=== PATIENT | male | born 1975 | race American Indian/Alaskan Native ===

== ENCOUNTER 2018-01-20 16:13 | Emergency (ER) | payer SELFPAY ==
[2018-01-20 17:33] LABS: Basophils # (Auto) 0.1 K/mm3 (0.0-0.1); Basophils % (Auto) 0.5 % (0.0-1.8); Eosinophils # (Auto) 0.1 K/mm3 (0.0-0.4); Eosinophils % (Auto) 0.5 % (0.0-4.3); Hematocrit 50.7 % (35.5-45.6); Hemoglobin 17.1 gm/dl (11.8-15.2); Lymphocytes # (Auto) 2.5 K/mm3 (1.2-5.4); Lymphocytes % (Auto) 21.5 % (13.4-35.0); Mean Corpuscular HGB Conc 34 % (32-34); Mean Corpuscular Hemoglobin 31 pg (28-32); Mean Corpuscular Volume 93 fl (84-94); Monocytes # (Auto) 0.9 K/mm3 (0.0-0.8); Monocytes % (Auto) 7.5 % (0.0-7.3); Platelet Count 262 K/mm3 (140-440); Red Blood Count 5.45 M/mm3 (3.65-5.03); Red Cell Distribution Width 14.7 % (13.2-15.2)
[2018-01-20 17:41] LABS: Alanine Aminotransferase 20 units/L (7-56); Albumin 4.5 g/dL (3.9-5); BUN/Creatinine Ratio 11; Blood Urea Nitrogen 16 mg/dL (9-20); Calcium 9.7 mg/dL (8.4-10.2); Hemolysis Index 13
[2018-01-20] MEDS ORDERED: NACL 0.9% 500 ML 500 ML IV ONE (18:15)
[2018-01-20] MEDS ORDERED: ZOFRAN IV ONE (18:15)
--- NOTE | 2018-01-20 18:20 | Emergency Department Report ---
<ELENIFIELDPAULOHaritha Wilcox - Last Filed: 01/20/18 20:34> ED N/V/D HPI - General Chief complaint: Nausea/Vomiting/Diarrhea Stated complaint: FOOD POISONING Time Seen by Provider: 01/20/18 18:11 - Related Data Previous Rx's Medication Instructions Recorded Last Taken Type Aspirin [Aspirin BABY CHEW TAB] 81 mg PO QDAY #30 tab.chew 04/16/13 Unknown Rx Carvedilol [Coreg] 12.5 mg PO BID #60 tablet 04/16/13 Unknown Rx Isosorbide Mononitrate [Imdur] 60 mg PO QDAY #30 tab.er.24h 04/16/13 Unknown Rx Lisinopril [Zestril TAB] 20 mg PO QDAY #30 tablet 04/16/13 Unknown Rx Nitroglycerin [Nitrostat] 0.4 mg SL Q5M #25 tab 04/16/13 Unknown Rx Rosuvastatin (Nf) [Crestor] 20 mg PO QHS #30 tablet 04/16/13 Unknown Rx Ticagrelor [Brilinta] 90 mg PO BID #60 tablet 04/16/13 Unknown Rx Dicyclomine [Bentyl] 20 mg PO QID PRN #20 tablet 01/20/18 Unknown Rx Ondansetron [Zofran Odt] 4 mg PO Q8HR PRN #20 tab.rapdis 01/20/18 Unknown Rx Allergies Allergy/AdvReac Type Severity Reaction Status Date / Time No Known Allergies Allergy Unverified 04/14/13 01:41 ED Review of Systems ROS: Stated complaint: FOOD POISONING Other details as noted in HPI ED Past Medical Hx - Medications Home Medications: Home Medications Medication Instructions Recorded Confirmed Last Taken Type Aspirin [Aspirin BABY CHEW TAB] 81 mg PO QDAY #30 tab.chew 04/16/13 Unknown Rx Carvedilol [Coreg] 12.5 mg PO BID #60 tablet 04/16/13 Unknown Rx Isosorbide Mononitrate [Imdur] 60 mg PO QDAY #30 tab.er.24h 04/16/13 Unknown Rx Lisinopril [Zestril TAB] 20 mg PO QDAY #30 tablet 04/16/13 Unknown Rx Nitroglycerin [Nitrostat] 0.4 mg SL Q5M #25 tab 04/16/13 Unknown Rx Rosuvastatin (Nf) [Crestor] 20 mg PO QHS #30 tablet 04/16/13 Unknown Rx Ticagrelor [Brilinta] 90 mg PO BID #60 tablet 04/16/13 Unknown Rx Dicyclomine [Bentyl] 20 mg PO QID PRN #20 tablet 01/20/18 Unknown Rx Ondansetron [Zofran Odt] 4 mg PO Q8HR PRN #20 tab.rapdis 01/20/18 Unknown Rx ED Course Vital Signs 01/20/18 01/20/18 16:43 20:46 Temperature 98.1 F 98.5 F Pulse Rate 83 68 Respiratory 18 Rate Blood Pressure 154/105 Blood Pressure 122/72 [Left] O2 Sat by Pulse 99 Oximetry ED Medical Decision Making - Lab Data Result diagrams: 01/20/18 17:13 01/20/18 17:13 Critical care attestation.: If time is entered above; I have spent that time in minutes in the direct care of this critically ill patient, excluding procedure time. ED Disposition Clinical Impression: Gastroenteritis Disposition: DC-01 TO HOME OR SELFCARE Is pt being admited?: No Does the pt Need Aspirin: No Condition: Stable Instructions: Gastroenteritis (ED) Additional Instructions: Please increase her fluid intake and advance her diet as tolerated. If her symptoms persist or gets worse please follow up with her primary care provider Prescriptions: Dicyclomine [Bentyl] 20 mg PO QID PRN #20 tablet PRN Reason: abdominal pain Ondansetron [Zofran Odt] 4 mg PO Q8HR PRN #20 tab.rapdis PRN Reason: Vomiting Referrals: [facility] [Provider Group] - 3-5 Days <IKE SCOTT - Last Filed: 01/21/18 11:39> ED N/V/D HPI - General Source: patient Mode of arrival: Ambulatory Limitations: No Limitations - History of Present Illness Initial comments: 42-year-old male presents to the ED with complaints of nausea, vomiting, diarrhea. Patient reports symptoms began 2 days ago after eating ribs. Patient reports only intermittent diffuse abdominal cramping. Denies fever, reports chills. Denies chest pain. Patient states today he has been able to start drinking a small amount of fluids. MD complaint: nausea, vomiting, diarrhea -: days(s) (2) Description of Vomiting: food contents, watery Description of Diarrhea: water Associated Abdominal Pain: Yes (cramping) Location: diffuse Radiation: none Severity: mild Quality: cramping Consistency: intermittent Improves with: none Worsens with: none Context: possible food poisoning Associated Symptoms: fever/chills, nausea/vomiting. denies: chest pain ED Review of Systems Comment: All other systems reviewed and negative Constitutional: chills. denies: fever Cardiovascular: denies: chest pain Gastrointestinal: abdominal pain, nausea, vomiting, diarrhea ED Past Medical Hx - Past Medical History Hx Hypertension: Yes Hx Heart Attack/AMI: Yes (x3) Hx Congestive Heart Failure: No Hx Diabetes: No Hx Asthma: No Hx COPD: No - Surgical History Hx Coronary Stent: Yes (x2) Additional Surgical History: heart stent - Social History Smoking Status: Current Every Day Smoker Substance Use Type: None ED Physical Exam - General Limitations: No Limitations General appearance: alert, in no apparent distress - Head Head exam: Present: atraumatic, normocephalic - Eye Eye exam: Present: normal appearance - ENT ENT exam: Present: mucous membranes moist - Neck Neck exam: Present: normal inspection - Respiratory Respiratory exam: Present: normal lung sounds bilaterally. Absent: respiratory distress - Cardiovascular Cardiovascular Exam: Present: regular rate, normal rhythm - GI/Abdominal GI/Abdominal exam: Present: soft. Absent: distended, tenderness - Extremities Exam Extremities exam: Present: normal inspection - Neurological Exam Neurological exam: Present: alert, oriented X3 - Psychiatric Psychiatric exam: Present: normal affect, normal mood - Skin Skin exam: Present: warm, dry, intact, normal color ED Medical Decision Making - Lab Data Result diagrams: 01/20/18 17:13 01/20/18 17:13 - Medical Decision Making 42-year-old male with gastroenteritis. Labs unremarkable. IV fluids given. Patient tolerating by mouth. Will discharge with prescriptions for antiemetics and Bentyl. - Differential Diagnosis pancreatitis, gastroenteritis, hypokalemia, dehydration ED Disposition Is pt being admited?: No
[2018-01-20 19:40] LABS: Bilirubin,Urine NEG (Negative); Blood,Urine MOD (Negative); Color,Urine Amber (Yellow); Hyaline Casts,Urine 2 /LPF; Mucus,Urine 3+ /HPF
[2018-01-20 20:47] VITALS: BP 122/72
== END 2018-01-20 20:46 | disposition home or self-care (01) ==
LOC: ED 16:13
DX: K52.9 Noninfective gastroenteritis and colitis, unspecified (principal); I10 Essential (primary) hypertension; I25.2 Old myocardial infarction; F17.200 Nicotine dependence, unspecified, uncomplicated; Z95.818 Presence of other cardiac implants and grafts
CPT/HCPCS: 36415; 80053; 81001; 83690; 85025; 96361; 96374; 99283; J2405; J7040

== ENCOUNTER 2018-01-22 18:54 | Inpatient (IN) | payer SELFPAY ==
[2018-01-22 20:07] LABS: INR 1.06 (0.87-1.13)
[2018-01-22 20:08] LABS: Partial Thromboplastin Time 28.9 Sec. (24.2-36.6)
[2018-01-22 20:15] LABS: BUN/Creatinine Ratio 11; Blood Urea Nitrogen 12 mg/dL (9-20); Calcium 9.3 mg/dL (8.4-10.2); Hematocrit 47.3 % (35.5-45.6); Hemoglobin 15.8 gm/dl (11.8-15.2); Hemolysis Index 7; Mean Corpuscular Hemoglobin 31 pg (28-32); Mean Corpuscular Volume 93 fl (84-94); Red Blood Count 5.07 M/mm3 (3.65-5.03)
[2018-01-22 20:16] LABS: Basophils % (Auto) 0.6 % (0.0-1.8); Eosinophils % (Auto) 0.5 % (0.0-4.3); Lymphocytes # (Auto) 1.8 K/mm3 (1.2-5.4); Lymphocytes % (Auto) 26.4 % (13.4-35.0); Mean Corpuscular HGB Conc 34 % (32-34); Monocytes # (Auto) 0.6 K/mm3 (0.0-0.8); Monocytes % (Auto) 8.2 % (0.0-7.3); Platelet Count 230 K/mm3 (140-440); Red Cell Distribution Width 14.4 % (13.2-15.2)
--- NOTE | 2018-01-22 22:08 | Cat Scan Report ---
FINAL REPORT EXAM: CT HEAD/BRAIN WO CON HISTORY: neuro deficits < 6hrs or sx present upon awakening TECHNIQUE: 2.5 millimeter axial images from the skullbase to the vertex. Comparison: None FINDINGS: There are 2 well-defined areas of decreased density in the right cerebellum with a mild degree of mass effect on the adjacent brain. This most likely represents areas of acute infarct in this patient with new onset neurologic deficit. There is no evidence of intracranial hemorrhage. There are infarcts in the right basal ganglia and right cerebellum that appear to be chronic. Ventricular size is concordant with the degree of atrophy. The visualized portions of the orbits the, paranasal and mastoid sinuses are unremarkable. The bony structures are unremarkable in appearance. IMPRESSION: 1. Evidence of acute infarcts in the right cerebellum. 2. Infarcts right basal ganglia and right cerebellum that appear to be chronic. If there is no clinical contraindication, MRI brain may be helpful for further evaluation.
--- NOTE | 2018-01-22 22:52 | Emergency Department Report ---
ED Neuro Deficit HPI - General Chief Complaint: Neuro Symptoms/Deficit Stated Complaint: NEURAL SYMPTOMS Time Seen by Provider: 01/22/18 22:26 Source: patient Mode of arrival: Ambulatory Limitations: No Limitations - History of Present Illness Initial Comments: Patient is 42 years old male with history of atrial fibrillation and previous stroke 3 years ago, coronary artery disease status post 3 stents before. Patient presented to the ER complaining of right upper and lower extremity weakness. Patient stated that he is having difficulty writing and grabbing things. He also stated that he been having trouble with his balance. Patient stated that his symptoms started 2 days ago but he did not seek any medical treatment. Patient denied any chest pain, nausea or vomiting. He also complaining of slurred speech. -: days(s) Location: speech, right face, right leg Presenting Symptoms: Present: Weak/Paralyzed One Side, Facial Droop/Numbness Context: sudden onset - Related Data Home Medications: Previous Rx's Medication Instructions Recorded Last Taken Type Aspirin [Aspirin BABY CHEW TAB] 81 mg PO QDAY #30 tab.chew 04/16/13 Unknown Rx Carvedilol [Coreg] 12.5 mg PO BID #60 tablet 04/16/13 Unknown Rx Isosorbide Mononitrate [Imdur] 60 mg PO QDAY #30 tab.er.24h 04/16/13 Unknown Rx Lisinopril [Zestril TAB] 20 mg PO QDAY #30 tablet 04/16/13 Unknown Rx Nitroglycerin [Nitrostat] 0.4 mg SL Q5M #25 tab 04/16/13 Unknown Rx Rosuvastatin (Nf) [Crestor] 20 mg PO QHS #30 tablet 04/16/13 Unknown Rx Ticagrelor [Brilinta] 90 mg PO BID #60 tablet 04/16/13 Unknown Rx Dicyclomine [Bentyl] 20 mg PO QID PRN #20 tablet 01/20/18 Unknown Rx Ondansetron [Zofran Odt] 4 mg PO Q8HR PRN #20 tab.rapdis 01/20/18 Unknown Rx Allergies/Adverse Reactions: Allergies Allergy/AdvReac Type Severity Reaction Status Date / Time No Known Allergies Allergy Unverified 04/14/13 01:41 ED Review of Systems ROS: Stated complaint: NEURAL SYMPTOMS Other details as noted in HPI Comment: All other systems reviewed and negative Constitutional: denies: chills, fever Respiratory: denies: cough, orthopnea, shortness of breath, SOB with exertion, wheezing Cardiovascular: denies: chest pain, palpitations Gastrointestinal: denies: abdominal pain, nausea, vomiting, diarrhea, constipation, hematemesis, hematochezia Genitourinary: denies: urgency, dysuria, frequency, hematuria, discharge Neurological: weakness, numbness, paresthesias, abnormal gait, vertigo. denies : headache, confusion ED Past Medical Hx - Past Medical History Hx Hypertension: Yes Hx Heart Attack/AMI: Yes (x3) Hx Congestive Heart Failure: No Hx Diabetes: No Hx Asthma: No Hx COPD: No Additional medical history: ELEVATED CHOLESTEROL - Surgical History Hx Coronary Stent: Yes (x2) Additional Surgical History: heart stent - Social History Smoking Status: Current Every Day Smoker Substance Use Type: None, Marijuana - Medications Home Medications: Home Medications Medication Instructions Recorded Confirmed Last Taken Type Aspirin [Aspirin BABY CHEW TAB] 81 mg PO QDAY #30 tab.chew 04/16/13 Unknown Rx Carvedilol [Coreg] 12.5 mg PO BID #60 tablet 04/16/13 Unknown Rx Isosorbide Mononitrate [Imdur] 60 mg PO QDAY #30 tab.er.24h 04/16/13 Unknown Rx Lisinopril [Zestril TAB] 20 mg PO QDAY #30 tablet 04/16/13 Unknown Rx Nitroglycerin [Nitrostat] 0.4 mg SL Q5M #25 tab 04/16/13 Unknown Rx Rosuvastatin (Nf) [Crestor] 20 mg PO QHS #30 tablet 04/16/13 Unknown Rx Ticagrelor [Brilinta] 90 mg PO BID #60 tablet 04/16/13 Unknown Rx Dicyclomine [Bentyl] 20 mg PO QID PRN #20 tablet 01/20/18 Unknown Rx Ondansetron [Zofran Odt] 4 mg PO Q8HR PRN #20 tab.rapdis 01/20/18 Unknown Rx ED Neuro Physical Exam - General Limitations: No Limitations General appearance: alert, in no apparent distress Suspected Stroke: Yes - Head Head exam: Present: atraumatic, normocephalic, normal inspection - Eye Eye exam: Present: normal appearance, PERRL - ENT ENT exam: Present: normal exam, normal orophraynx, mucous membranes moist - Neck Neck exam: Present: normal inspection, full ROM. Absent: tenderness, meningismus, lymphadenopathy, thyromegaly - Respiratory Respiratory exam: Present: normal lung sounds bilaterally. Absent: respiratory distress, wheezes, rales, rhonchi, chest wall tenderness, accessory muscle use, decreased breath sounds, prolonged expiratory - Cardiovascular Cardiovascular Exam: Present: regular rate, normal rhythm, normal heart sounds - GI/Abdominal GI/Abdominal exam: Present: soft, normal bowel sounds. Absent: distended, tenderness, guarding, rebound, rigid, organomegaly, mass, bruit, pulsatile mass , hernia - Extremities Exam Extremities exam: Present: normal inspection, full ROM, normal capillary refill. Absent: tenderness, pedal edema, joint swelling, calf tenderness - Back Exam Back exam: Present: normal inspection, full ROM. Absent: CVA tenderness (R), CVA tenderness (L), muscle spasm, paraspinal tenderness, vertebral tenderness - Neurological Exam Neurological exam: Present: alert, oriented X3, CN II-XII intact, normal gait, reflexes normal - NIHSS Assessment Interval: 24 hours post onset of symptoms +-20 minutes 1a. Level of Consciousness: alert/keenly responsive 1b. LOC Questions: answers both correctly 1c. LOC Commands: performs tasks correctly 2. Best Gaze: normal 3. Visual: no visual loss 4. Facial Palsy: minor paralysis 5b. Motor Arm Right: no drift 5a. Motor Arm Left: no drift 6a. Motor Leg Left: no drift 6b. Motor Leg Right: no drift 7. Limb Ataxia: absent 8. Sensory: mild/moderate sensory loss 9. Best Language: mild/moderate aphasia 10. Dysarthria: mild/moderate dysarthria 11. Extinction/Inattention: no abnormality Total Score: 4 Stroke Severity: Minor Stroke - Skin Skin exam: Present: warm, intact, normal color ED Course Vital Signs 01/22/18 19:16 Temperature 98.7 F Pulse Rate 94 H Respiratory 20 Rate Blood Pressure 138/94 O2 Sat by Pulse 98 Oximetry - Lab Data Result diagrams: 01/22/18 19:34 01/22/18 19:34 Lab Results 01/22/18 01/22/18 01/22/18 Range/Units 19:34 19:34 19:34 WBC 6.9 (4.5-11.0) K/mm3 RBC 5.07 H (3.65-5.03) M/mm3 Hgb 15.8 H (11.8-15.2) gm/dl Hct 47.3 H (35.5-45.6) % MCV 93 (84-94) fl MCH 31 (28-32) pg MCHC 34 (32-34) % RDW 14.4 (13.2-15.2) % Plt Count 230 (140-440) K/mm3 Lymph % (Auto) 26.4 (13.4-35.0) % [place] % (Auto) 8.2 H (0.0-7.3) % Eos % (Auto) 0.5 (0.0-4.3) % Baso % (Auto) 0.6 (0.0-1.8) % Lymph # 1.8 (1.2-5.4) K/mm3 [place] # 0.6 (0.0-0.8) K/mm3 Eos # 0.0 (0.0-0.4) K/mm3 Baso # 0.0 (0.0-0.1) K/mm3 Seg Neutrophils % 64.3 (40.0-70.0) % Seg Neutrophils # 4.4 (1.8-7.7) K/mm3 PT 14.4 (12.2-14.9) Sec. INR 1.06 (0.87-1.13) APTT 28.9 (24.2-36.6) Sec. Thrombin Time (15.1-19.6) Sec. Sodium 140 (137-145) mmol/L Potassium 3.9 (3.6-5.0) mmol/L Chloride 102.3 (98-107) mmol/L Carbon Dioxide 25 (22-30) mmol/L Anion Gap 17 mmol/L BUN 12 (9-20) mg/dL Creatinine 1.1 (0.8-1.5) mg/dL Estimated GFR > 60 ml/min BUN/Creatinine Ratio 11 % Glucose 99 (75-100) mg/dL Calcium 9.3 (8.4-10.2) mg/dL Troponin T < 0.010 (0.00-0.029) ng/mL 01/22/18 Range/Units 19:34 WBC (4.5-11.0) K/mm3 RBC (3.65-5.03) M/mm3 Hgb (11.8-15.2) gm/dl Hct (35.5-45.6) % MCV (84-94) fl MCH (28-32) pg MCHC (32-34) % RDW (13.2-15.2) % Plt Count (140-440) K/mm3 Lymph % (Auto) (13.4-35.0) % [place] % (Auto) (0.0-7.3) % Eos % (Auto) (0.0-4.3) % Baso % (Auto) (0.0-1.8) % Lymph # (1.2-5.4) K/mm3 [place] # (0.0-0.8) K/mm3 Eos # (0.0-0.4) K/mm3 Baso # (0.0-0.1) K/mm3 Seg Neutrophils % (40.0-70.0) % Seg Neutrophils # (1.8-7.7) K/mm3 PT (12.2-14.9) Sec. INR (0.87-1.13) APTT (24.2-36.6) Sec. Thrombin Time 16.9 (15.1-19.6) Sec. Sodium (137-145) mmol/L Potassium (3.6-5.0) mmol/L Chloride (98-107) mmol/L Carbon Dioxide (22-30) mmol/L Anion Gap mmol/L BUN (9-20) mg/dL Creatinine (0.8-1.5) mg/dL Estimated GFR ml/min BUN/Creatinine Ratio % Glucose (75-100) mg/dL Calcium (8.4-10.2) mg/dL Troponin T (0.00-0.029) ng/mL - Radiology Data Radiology results: report reviewed Referring Physician: EDGARDO HERNANDEZ Patient Name: VADIM YATES Date of : 1975 Sex: Male Report Date: 2018-01-22 Report Status: Finalized Findings [facility] [address] [place] [address] Cat Scan Report Signed Patient: VADIM YATES MR#: [id number] : 1975 Acct:[id number] Age/Sex: 42 / M ADM Date: 01/22/18 Loc: ED Attending Dr: Ordering Physician: EDGARDO HERNANDEZ MD Date of Service: 01/22/18 Procedure(s): CT head/brain wo con Accession Number(s): [id number] cc: EDGARDO HERNANDEZ MD FINAL REPORT EXAM: CT HEAD/BRAIN WO CON HISTORY: neuro deficits lt; 6hrs or sx present upon awakening TECHNIQUE: 2.5 millimeter axial images from the skullbase to the vertex. Comparison: None FINDINGS: There are 2 well-defined areas of decreased density in the right cerebellum with a mild degree of mass effect on the adjacent brain. This most likely represents areas of acute infarct in this patient with new onset neurologic deficit. There is no evidence of intracranial hemorrhage. There are infarcts in the right basal ganglia and right cerebellum that appear to be chronic. Ventricular size is concordant with the degree of atrophy. The visualized portions of the orbits the, paranasal and mastoid sinuses are unremarkable. The bony structures are unremarkable in appearance. IMPRESSION: 1. Evidence of acute infarcts in the right cerebellum. 2. Infarcts right basal ganglia and right cerebellum that appear to be chronic. If there is no clinical contraindication, MRI brain may be helpful for further evaluation. Transcribed By: ED Dictated By: MADELIN GARNER MD Electronically Authenticated By: MADELIN GARNER MD Signed Date/Time: 01/22/182206 DD/ 06 TD/TT: 01/22/182206 - Medical Decision Making Speedy is 42 years old male with history of atrial fibrillation and previous stroke 3 years ago, coronary artery disease status post 3 stents before. Patient presented to the ER complaining of right upper and lower extremity weakness. Patient stated that he is having difficulty writing and grabbing things. He also stated that he been having trouble with his balance. Patient stated that his symptoms started 2 days ago but he did not seek any medical treatment. Patient denied any chest pain, nausea or vomiting. He also complaining of slurred speech. Patient found to have acute right cerebellar infarction. I discussed the patient is Dr. Cinthia Buck, she agreed to admit the patient to medical service. Critical Care Time: Yes Critical care time in (mins) excluding proc time.: 30 Critical care attestation.: If time is entered above; I have spent that time in minutes in the direct care of this critically ill patient, excluding procedure time. ED Disposition Clinical Impression: Cerebellar stroke, acute Disposition: DC-09 OP ADMIT IP TO THIS HOSP Is pt being admited?: Yes Condition: Stable
[2018-01-22] MEDS ORDERED: TYLENOL PO PRN (23:35)
[2018-01-22] MEDS ORDERED: MILK OF MAGNESIA PO PRN (23:35)
[2018-01-22] MEDS ORDERED: DULCOLAX PR PRN (23:35)
[2018-01-22] MEDS ORDERED: ZOFRAN IV PRN (23:35)
[2018-01-22] MEDS ORDERED: APRESOLINE IV PRN (23:35)
[2018-01-22] MEDS ORDERED: SODIUM CHLORIDE FLUSH SYRINGE 10 ML IV PRN (23:35)
--- NOTE | 2018-01-22 23:35 | History and Physical Report ---
History of Present Illness Date of examination: 01/22/18 History of present illness: 42-year-old man with a history of hypertension, hyperlipidemia, coronary artery disease, A. fib cause emergency room with complaints of right-sided weakness, slurred speech that started on Monday. 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 Neck: No neck pain or rigidity. Cardiovascular: no chest pain, palpitations Respiratory: no cough, shortness of breath Gastrointestinal: no abdominal pain hematochezia Genitourinary : no frequency , no hematuria Musculoskeletal: no joint swelling or muscle ache Integumentary: no rash, no pruritis Neurological: no parathesias, no numbness Endocrine: no cold or heat intolerance, no polyuria or polydipsia Hematologic/Lymphatic: no easy bruising, no easy bleeding, no gland swelling Allergic/Immunologic: no urticaria, no angioedema. PAST MEDICAL HISTORY: hypertension, hyperlipidemia, coronary artery disease, A. fib PAST SURGICAL HISTORY: none SOCIAL HISTORY: No alcohol, no drugs, smoke 1 pack of cigar a day FAMILY HISTORY: Hypertension Medications and Allergies Allergies Allergy/AdvReac Type Severity Reaction Status Date / Time No Known Allergies Allergy Unverified 04/14/13 01:41 Home Medications Medication Instructions Recorded Confirmed Last Taken Type Aspirin [Aspirin BABY CHEW TAB] 81 mg PO QDAY #30 tab.chew 04/16/13 01/23/1805/11 Rx Carvedilol [Coreg] 12.5 mg PO BID #60 tablet 04/16/13 01/23/18 01/22/18 Rx Isosorbide Mononitrate [Imdur] 60 mg PO QDAY #30 tab.er.24h 04/16/13 01/23/18 Rx Lisinopril [Zestril TAB] 20 mg PO QDAY #30 tablet 04/16/13 01/23/18 01/22/18 Rx Nitroglycerin [Nitrostat] 0.4 mg SL Q5M #25 tab 04/16/13 01/23/18 Unknown Rx Rosuvastatin (Nf) [Crestor] 20 mg PO QHS #30 tablet 04/16/13 01/23/18 01/19/18 Rx Ticagrelor [Brilinta] 90 mg PO BID #60 tablet 04/16/13 01/23/18 01/19/18 Rx Dicyclomine [Bentyl] 20 mg PO QID PRN #20 tablet 01/20/18 01/23/18 01/22/18 Rx Ondansetron [Zofran Odt] 4 mg PO Q8HR PRN #20 tab.rapdis 01/20/18 01/23/18 Unknown Rx Exam - Constitutional Vitals: Temp Pulse Resp BP Pulse Ox 98.7 F 78 16 144/84 100 01/22/18 19:16 01/22/18 23:10 01/22/18 23:14 01/22/18 23:10 01/22/18 23:14 Results - Labs CBC & Chem 7: 01/22/18 19:34 01/22/18 19:34 Labs: Abnormal lab results 01/22/18 Range/Units 19:34 RBC 5.07 H (3.65-5.03) M/mm3 Hgb 15.8 H (11.8-15.2) gm/dl Hct 47.3 H (35.5-45.6) % [place] % (Auto) 8.2 H (0.0-7.3) % - Imaging and Cardiology EKG: image reviewed Chest x-ray: image reviewed CT Scan - head: report reviewed Assessment and Plan Assessment Acute CVA hypertension hyperlipidemia coronary artery disease History of A. fib, now in normal sinus rhythm Plan Admit to medicine Obtain MRI of the head, carotid Doppler, echo Start aspirin, statin Do neurochecks, swallow screen Consult neurology, physical therapy Continue appropiate out patient medications DVT prophylaxis
--- NOTE | 2018-01-23 00:09 | XRay Report ---
FINAL REPORT EXAM: XR CHEST 1V AP HISTORY: stroke TECHNIQUE: A portable upright view the chest was submitted. FINDINGS: The heart size and vascularity appear normal. The lungs are clear. Pleural fluid is not seen. The skeletal structures do not show any acute changes. IMPRESSION: No acute cardiopulmonary process.
[2018-01-23 07:28] LABS: Chol/HDL Ratio 5.7 %
[2018-01-23] MEDS ORDERED: ASPIRIN PO SCH (10:00)
[2018-01-23] MEDS ORDERED: LOVENOX SUB-Q SCH ×2 (10:00)
[2018-01-23] MEDS ORDERED: HALFPRIN EC PO SCH (10:00)
[2018-01-23] MEDS: BRILINTA PO SCH ×2 (10:00→21:29)
--- NOTE | 2018-01-23 11:17 | Event Note ---
Date: 01/23/[address] showing 3 cm right cerebellar infarct subacute, effacing right side of 4th ventricle. Recommend transfer to facility that has neurosurgical backup since edema could make this worse in next few days. I am concerned that BP is high at 167/114 increasing risk of hemorrhagic transformation of this stroke too. Texted similar message to Dr. Liao who will be calling me back. She later called me and agreed with transfer.
--- NOTE | 2018-01-23 13:54 | Discharge Summary ---
Providers - Providers Date of Admission: 01/22/18 23:35 Attending physician: STU SEE MD 01/22/18 Consult to Physician [CONS] Routine Comment: NOTIFIED KUSHAL Consulting Provider: PATRICK BAR Physician Instructions: Reason For Exam: cva 01/22/18 23:35 Occupational Therapy Evaluate and Treat [CONS] Routine Comment: Reason For Exam: Neuro deficits Physical Therapy Evaluation and Treat [CONS] Routine Comment: Reason For Exam: Neuro deficits Primary care physician: AB INITIO ETL DEVELOPER Hospitalization Condition: Stable Hospital course: 42-year-old man with a history of hypertension, hyperlipidemia, coronary artery disease, A. fib cause emergency room with complaints of right-sided weakness, slurred speech that started on Monday. 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 fib, now in normal sinus rhythm Plan Admit to medicine Obtain MRI of the head, carotid Doppler, echo Start aspirin, statin Do neurochecks, swallow screen Consult neurology, physical therapy Continue appropiate out patient medications DVT prophylaxis Disposition: DC/- [facility] Time spent for discharge: 33 minutes Core Measure Documentation - Palliative Care Palliative Care/ Comfort Measures: Not Applicable - Core Measures Any of the following diagnoses?: stroke - Stroke Discharge Requirements Statin for LDL = or >70 mg/dl on DC: Not Applicable Anticoag for atrial fib/atrial flutter: Not Applicable Antithrombotic for ischemic stroke: Yes Exam - Constitutional Vitals: Temp Pulse Resp BP Pulse Ox 98.8 F 67 18 134/84 99 01/23/18 12:12 01/23/18 12:12 01/23/18 12:12 01/23/18 12:12 01/23/18 12:12 General appearance: Present: no acute distress, well-nourished - EENT Eyes: Present: PERRL ENT: hearing intact, clear oral mucosa - Neck Neck: Present: supple, normal ROM - Respiratory Respiratory effort: normal Respiratory: bilateral: CTA - Cardiovascular Heart Sounds: Present: S1 & S2. Absent: rub, click - Extremities Extremities: pulses symmetrical, No edema Peripheral Pulses: within normal limits - Abdominal General gastrointestinal: Present: soft, non-tender, non-distended, normal bowel sounds Male genitourinary: Present: normal - Integumentary Integumentary: Present: clear, warm, dry - Musculoskeletal Musculoskeletal: gait normal, strength equal bilaterally - Psychiatric Psychiatric: appropriate mood/affect, intact judgment & insight - Neurologic Neurologic: CNII-XII intact, focal deficits (right side weakness), other ( slurred speech) Plan Follow up with: PRIMARY CARE, [Primary Care Provider] - 3-5 Days
--- NOTE | 2018-01-23 16:47 | Magnetic Resonance Report ---
FINAL REPORT EXAM: MR BRAIN WO CON HISTORY: stroke left-sided weakness TECHNIQUE: T1 and T2 weighted sagittal, axial, coronal and diffusion-weighted images of the brain were obtained. Comparison: Head CT dated January 22, 2018 FINDINGS: There is a large area of diffusion abnormality in the right superior cerebellum consistent with an acute infarct in the distribution of the right superior cerebellar artery. There are chronic infarcts in the right basal ganglia and right cerebellum. There is gradient echo abnormality in the region of the right basal ganglia infarcts which may represent sequela of previous hemorrhage. There is no evidence of hemorrhage in the area of acute infarct. There is no evidence of significant mass effect. Ventricular size is concordant with the degree of atrophy/volume loss. Expected flow void is demonstrated within the major intracranial vessels. The extracranial structures and craniocervical junction are unremarkable in appearance. IMPRESSION: 1. Acute infarct right superior cerebellum in the vascular distribution of the right superior cerebellar artery. 2. Chronic infarcts right basal ganglia and right cerebellum.
--- NOTE | 2018-01-23 18:13 | Progress Note ---
Assessment and Plan Assessment and plan: 42-year-old man with a previous history of hypertension, hyperlipidemia, coronary artery disease, atrial fibrillation. The patient has a stroke in the past over 3 years ago. He presented with 2 days of right-sided weakness and slurred speech. 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 -I have spoken to neurology at [place], diarrhea reviewing the CT scan and MRI and deciding if the patient is appropriate for transfer to a facility with neurosurgery backup. -At this time it seems that transfer is unlikely, as patient is now day 3, day 4 and he probably has reached peak edema of his brain. -Optimize medications for secondary prevention Hypertensive urgency -Allow permissive hypertension given acute CVA Coronary artery disease -Optimize medications Atrial fibrillation on hypercoagulable states -Resume History Interval history: Pertinent patient right-sided weakness is improving, also his speech is less slurred and it was when he came to the hospital Review of systems Constitutional: No fevers, no malaise, no joint pains CVS: No chest pain, no orthopnea, no dyspnea on exertion, no pedal edema GI: No abdominal pain, no diarrhea, no vomiting, no constipation Respiratory: No shortness of breath, no wheezing, no coughing Hospitalist Physical - Physical exam Narrative exam: General.: Appears well, no distress, nontoxic HEENT: Moist mucous membranes, extraocular muscles intact, no lymphadenopathy Neck: supple Cardiac: S1-S2 heard Lungs: clear to auscultation bilaterally Abdomen: soft , nontender, nondistended, bowel sounds positive Extremities: no edema clubbing or cyanosis Skin: no rash or lesions Neurologic: Very mild right-sided weakness, very mildly slurred speech Psych: appropriate behavior, appropriate mood, corporative, judgment intact - Constitutional Vitals: Temp Pulse Resp BP Pulse Ox 98.2 F 63 20 158/96 100 01/23/18 16:57 01/23/18 16:57 01/23/18 16:57 01/23/18 16:56 01/23/18 16:57 General appearance: Present: no acute distress, well-nourished Results - Labs CBC & Chem 7: 01/22/18 19:34 01/22/18 19:34 Labs: Laboratory Last Values WBC 6.9 K/mm3 (4.5-11.0) 01/22/18 19:34 RBC 5.07 M/mm3 (3.65-5.03) H 01/22/18 19:34 Hgb 15.8 gm/dl (11.8-15.2) H 01/22/18 19:34 Hct 47.3 % (35.5-45.6) H 01/22/18 19:34 MCV 93 fl (84-94) 01/22/18 19:34 MCH 31 pg (28-32) 01/22/18 19:34 MCHC 34 % (32-34) 01/22/18 19:34 RDW 14.4 % (13.2-15.2) 01/22/18 19:34 Plt Count 230 K/mm3 (140-440) 01/22/18 19:34 Lymph % (Auto) 26.4 % (13.4-35.0) 01/22/18 19:34 [place] % (Auto) 8.2 % (0.0-7.3) H 01/22/18 19:34 Eos % (Auto) 0.5 % (0.0-4.3) 01/22/18 19:34 Baso % (Auto) 0.6 % (0.0-1.8) 01/22/18 19:34 Lymph # 1.8 K/mm3 (1.2-5.4) 01/22/18 19:34 [place] # 0.6 K/mm3 (0.0-0.8) 01/22/18 19:34 Eos # 0.0 K/mm3 (0.0-0.4) 01/22/18 19:34 Baso # 0.0 K/mm3 (0.0-0.1) 01/22/18 19:34 Seg Neutrophils % 64.3 % (40.0-70.0) 01/22/18 19:34 Seg Neutrophils # 4.4 K/mm3 (1.8-7.7) 01/22/18 19:34 PT 14.4 Sec. (12.2-14.9) 01/22/18 19:34 INR 1.06 (0.87-1.13) 01/22/18 19:34 APTT 28.9 Sec. (24.2-36.6) 01/22/18 19:34 Thrombin Time 16.9 Sec. (15.1-19.6) 01/22/18 19:34 Sodium 140 mmol/L (137-145) 01/22/18 19:34 Potassium 3.9 mmol/L (3.6-5.0) 01/22/18 19:34 Chloride 102.3 mmol/L (98-107) 01/22/18 19:34 Carbon Dioxide 25 mmol/L (22-30) 01/22/18 19:34 Anion Gap 17 mmol/L 01/22/18 19:34 BUN 12 mg/dL (9-20) 01/22/18 19:34 Creatinine 1.1 mg/dL (0.8-1.5) 01/22/18 19:34 Estimated GFR > 60 ml/min 01/22/18 19:34 BUN/Creatinine Ratio 11 % 01/22/18 19:34 Glucose 99 mg/dL (75-100) 01/22/18 19:34 Calcium 9.3 mg/dL (8.4-10.2) 01/22/18 19:34 Troponin T < 0.010 ng/mL (0.00-0.029) 01/22/18 19:34 Triglycerides 97 mg/dL (2-149) 01/23/18 06:43 Cholesterol 194 mg/dL (50-199) 01/23/18 06:43 LDL Cholesterol Direct 150 mg/dL (50-130) H 01/23/18 06:43 HDL Cholesterol 34 mg/dL (40-59) L 01/23/18 06:43 Cholesterol/HDL Ratio 5.70 % 01/23/18 06:43
[2018-01-23 20:08] VITALS: BP 156/96
[2018-01-23] MEDS ORDERED: ROSUVASTATIN 20 MG PO SCH (22:00)
== END 2018-01-23 21:44 | disposition short-term general hospital (02) | DRG 65 ==
LOC: ED 18:54 → 4A 23:35
PROVIDERS: ADMIT Internal Medicine; ATTEND Internal Medicine
DX: I63.9 Cerebral infarction, unspecified (principal); I50.22 Chronic systolic (congestive) heart failure; G81.91 Hemiplegia, unspecified affecting right dominant side; E78.5 Hyperlipidemia, unspecified; F17.210 Nicotine dependence, cigarettes, uncomplicated; I16.0 Hypertensive urgency; I25.10 Atherosclerotic heart disease of native coronary artery without angina pectoris; I11.0 Hypertensive heart disease with heart failure; R29.704 NIHSS score 4; I48.91 Unspecified atrial fibrillation; Z82.49 Family history of ischemic heart disease and other diseases of the circulatory system; Z79.82 Long term (current) use of aspirin; Z79.899 Other long term (current) drug therapy; Z95.5 Presence of coronary angioplasty implant and graft; I25.2 Old myocardial infarction; Z79.01 Long term (current) use of anticoagulants
CPT/HCPCS: 36415; 70450; 70551; 71045; 80048; 80061; 82962; 84484; 85025; 85610; 85670; 85730; 93005; 93010; 93306; 93880; 99406; A9270-GY; J1650

== ENCOUNTER 2020-08-16 08:26 | Emergency (ER) | payer SELFPAY ==
[2020-08-16] MEDS ORDERED: ROCURONIUM 50 MG/5 ML INJ IV ONE (08:38)
[2020-08-16] MEDS ORDERED: SODIUM CHLORIDE 0.9% 1000 ML 1,000 ML IV ONE (08:50)
[2020-08-16] MEDS ORDERED: NORepinephrine/NS 4 MG-250 ML 4 MG/250 ML BAG IV ONE ×2 (08:55→09:00)
--- NOTE | 2020-08-16 08:56 | Emergency Department Report ---
ED CPR HPI - General Chief Complaint: Cardiac Arrest/CPR Stated Complaint: WEAKNESS Time Seen by Provider: 08/16/20 08:50 Source: patient, EMS Mode of arrival: Wheelchair Limitations: No Limitations - History of Present Illness Initial Comments: Patient is 44-year-old male with history of hypertension, CVA, coronary artery disease and atrial fibrillation. Patient brought to the emergency via EMS from home for evaluation of generalized weakness for the last 2 to 3 days. Upon arrival to the ER patient started gasping for breath and patient went into full cardiac arrest. ACLS immediately initiated. Initial rhythm was PEA. Patient immediately intubated. Rhythm change to V. tach and V. fib. Patient received 300 to 60 J and 300 mg of amiodarone. Patient rhythm change to asystole and then patient regained his pulse. Patient lost his pulse again and his rhythm showed a PEA. CPR started. Patient regained pulse. Patient coded several times after that. For further information please refer to code sheet. MD Complaint: collapsed during rest - Related Data Previous Rx's Medication Instructions Recorded Last Taken Type Aspirin [Aspirin BABY CHEW TAB] 81 mg PO QDAY #30 tab.chew 04/16/13 01/22/18 Rx Isosorbide Mononitrate [Imdur] 60 mg PO QDAY #30 tab.er.24h 04/16/13 01/22/18 Rx Nitroglycerin [Nitrostat] 0.4 mg SL Q5M #25 tab 04/16/13 Unknown Rx Rosuvastatin (Nf) [Crestor] 20 mg PO QHS #30 tablet 04/16/13 01/19/18 Rx Ticagrelor [Brilinta] 90 mg PO BID #60 tablet 04/16/13 01/19/18 Rx carvediloL [Coreg] 12.5 mg PO BID #60 tablet 04/16/13 01/22/18 Rx lisinopriL [Zestril TAB] 20 mg PO QDAY #30 tablet 04/16/13 01/22/18 Rx Dicyclomine [Bentyl] 20 mg PO QID PRN #20 tablet 01/20/18 01/22/18 Rx Ondansetron [Zofran Odt] 4 mg PO Q8HR PRN #20 tab.rapdis 01/20/18 Unknown Rx Allergies Allergy/AdvReac Type Severity Reaction Status Date / Time No Known Allergies Allergy Unverified 04/14/13 01:41 ED Review of Systems ROS: Stated complaint: WEAKNESS Other details as noted in HPI ED Past Medical Hx - Past Medical History Previous Medical History?: Yes Hx Hypertension: Yes Hx Heart Attack/AMI: Yes (x3) Hx Congestive Heart Failure: No Hx Diabetes: No Hx Asthma: No Hx COPD: No Additional medical history: ELEVATED CHOLESTEROL - Surgical History Past Surgical History?: Yes Hx Coronary Stent: Yes Additional Surgical History: heart stent - Social History Smoking Status: Current Every Day Smoker - Medications Home Medications: Home Medications Medication Instructions Recorded Confirmed Last Taken Type Aspirin [Aspirin BABY CHEW TAB] 81 mg PO QDAY #30 tab.chew 04/16/13 01/23/18 01/22/18 Rx Isosorbide Mononitrate [Imdur] 60 mg PO QDAY #30 tab.er.24h 04/16/13 01/23/18 01/22/18 Rx Nitroglycerin [Nitrostat] 0.4 mg SL Q5M #25 tab 04/16/13 01/23/18 Unknown Rx Rosuvastatin (Nf) [Crestor] 20 mg PO QHS #30 tablet 04/16/13 01/23/18 01/19/18 Rx Ticagrelor [Brilinta] 90 mg PO BID #60 tablet 04/16/13 01/23/18 01/19/18 Rx carvediloL [Coreg] 12.5 mg PO BID #60 tablet 04/16/13 01/23/18 01/22/18 Rx lisinopriL [Zestril TAB] 20 mg PO QDAY #30 tablet 04/16/13 01/23/18 01/22/18 Rx Dicyclomine [Bentyl] 20 mg PO QID PRN #20 tablet 01/20/18 01/23/18 01/22/18 Rx Ondansetron [Zofran Odt] 4 mg PO Q8HR PRN #20 tab.rapdis 01/20/18 01/23/18 Unknown Rx ED Physical Exam - General Limitations: No Limitations ED Course Vital Signs 08/16/20 08/16/20 08/16/20 08:34 08:46 09:01 Pulse Rate 160 H 80 76 Respiratory 21 21 20 Rate Blood Pressure 110/31 O2 Sat by Pulse 95 96 Oximetry 08/16/20 08/16/20 08/16/20 09:02 09:15 09:31 Pulse Rate 55 L 56 L 51 L Respiratory 20 20 Rate Blood Pressure 69/48 108/60 69/18 O2 Sat by Pulse 98 Oximetry 08/16/20 08/16/20 08/16/20 09:45 09:50 10:00 Pulse Rate 92 H 103 H 112 H Respiratory 20 20 Rate Blood Pressure 70/22 89/36 O2 Sat by Pulse 99 Oximetry 08/16/20 08/16/20 08/16/20 10:15 10:30 10:45 Pulse Rate 113 H 114 H 87 Respiratory 20 20 20 Rate Blood Pressure 88/52 68/37 70/31 O2 Sat by Pulse 100 100 100 Oximetry 08/16/20 11:00 Pulse Rate 115 H Respiratory 20 Rate Blood Pressure 83/23 O2 Sat by Pulse Oximetry - Central Line Placement Right Femoral Consent Obtained: emergent situation Time Out Performed: Yes Patient Placed on Monitor/Pulse Ox: Yes Prep: mask, gown, gloves Central Line Prep: Povidone-Iodine 1%, Chlorhexidine scrub, sterile drapes applied Local Anesthesia Used: Lidocaine 1% Central Line Lumen Inserted: triple Reason for Insertion: Volume Resuscitation Bloods Obtained for Lab: Yes Central Line Position: good blood return, all ports aspirated, flus, sutured in place with 2-0 Dressing Applied: Tegaderm, sterile gauze/tape Patient Tolerated Procedure: well, no complications Complications: none - Intubation Time Out Performed: Yes Paralytic: Rocuronium Laryngoscope: Hilda Size: 4 Assist Device Used: fiberoptic device ET Tube Size: 7.5 Tube Secured Location: teeth Tube Placement Confirmation: visualized tube passing t, equal breath sounds bilat, no breath sounds over epi, confirmation by capnometr Patient Tolerated Procedure: well, no complications Intubation Complications: none ED Medical Decision Making - Lab Data Result diagrams: 08/16/20 Unknown 08/16/20 Unknown - EKG Data -: EKG Interpreted by Me EKG shows normal: sinus rhythm Rate: normal - Radiology Data Radiology results: report reviewed - Medical Decision Making Patient is 44-year-old male with history of hypertension, CVA, coronary artery disease and atrial fibrillation. Patient brought to the emergency via EMS from home for evaluation of generalized weakness for the last 2 to 3 days. Upon arrival to the ER patient started gasping for breath and patient went into full cardiac arrest. ACLS immediately initiated. Initial rhythm was PEA. Patient immediately intubated. Rhythm change to V. tach and V. fib. Patient received 300 to 60 J and 300 mg of amiodarone. Patient rhythm change to asystole and then patient regained his pulse. Patient lost his pulse again and his rhythm showed a PEA. CPR started. Patient regained pulse. Patient coded several times after that. For further information please refer to code sheet. Patient found to have a white blood cells of 35,000. Patient received Zosyn and vancomycin. INR is 12. Patient received vitamin K. Patient found to have a creatinine of 15.8 and a BUN of 220. Patient lost his pulse again. ACLS protocol continued. Patient did not regain his pulse back again. Patient pronounced at 11:03 AM. Patient listed his cousin Pascual as his first contact at [phone]. I had a conversation with his cousin on the phone. His cousin stated that he does not have any spouse or parents. He stated that he is only one that he have. He s tated that he had second shot of Pfizer vaccine approximately 1 week ago and since then his stopped eating and drinking. He stated that he was complaining of groin pain and swelling. Critical Care Time: Yes Critical care time in (mins) excluding proc time.: 60 Critical care attestation.: If time is entered above; I have spent that time in minutes in the direct care of this critically ill patient, excluding procedure time. ED Disposition Clinical Impression: Cardiopulmonary arrest Disposition: DC-20 Is pt being admited?: No Condition: Stable Referrals: PRIMARY CARE, [Primary Care Provider] - 3-5 Days
--- NOTE | 2020-08-16 09:08 | XRay Report ---
XR chest 1V ap INDICATION / CLINICAL INFORMATION: CPR COMPARISON: None available. FINDINGS: SUPPORT DEVICES: Endotracheal tube terminates appropriately at the level of clavicular heads. HEART / MEDIASTINUM: No significant abnormality. LUNGS / PLEURA: Left basilar opacity is most likely related to atelectasis. Costophrenic sulci are sh patel. No pneumothorax. ADDITIONAL FINDINGS: No significant additional findings. IMPRESSION: 1. Endotracheal tube terminates appropriately. Suspect left basilar atelectasis. Signer Name: Gui Marquez MD Signed: 08/16/2020 9:04 AM Workstation Name: [id number]
[2020-08-16] MEDS ORDERED: DOPamine/D5W 800 MG/250 ML 800 MG/250 ML BAG IV ONE ×2 (09:26→10:39)
[2020-08-16 09:35] LABS: Hematocrit 24.4 % (35.5-45.6); Hemoglobin 8.3 gm/dl (11.8-15.2); Mean Corpuscular HGB Conc 34 % (32-34); Mean Corpuscular Volume 89 fl (84-94); Platelet Count 179 K/mm3 (140-440); Red Blood Count 2.75 M/mm3 (3.65-5.03); Red Cell Distribution Width 13.8 % (13.2-15.2)
[2020-08-16 09:49] LABS: Creatine Kinase MB 8.5 ng/mL (0.0-4.0)
[2020-08-16 09:50] LABS: Calcium 6.9 mg/dL (8.4-10.2)
[2020-08-16 09:51] LABS: Bilirubin,Direct 0.3 mg/dL (0-0.2)
[2020-08-16 09:58] LABS: INR 12.38 (0.87-1.13); Partial Thromboplastin Time 77.3 Sec. (24.2-36.6)
[2020-08-16 10:08] LABS: Chol/HDL Ratio 3.46 %
[2020-08-16] MEDS ORDERED: PIPERACILLIN/TAZOBACTAM 3.375 3.375 GM/50 ML BAG IV ONE (10:22)
[2020-08-16] MEDS ORDERED: VANCOMYCIN/NS 1 GM/250 ML 1 GM/250 ML BAG IV ONE (10:22)
[2020-08-16 10:46] LABS: Bilirubin,Urine NEG (Negative); Blood,Urine NEG (Negative); Color,Urine Amber (Yellow); Hyaline Casts,Urine 1 /LPF; Mucus,Urine FEW /HPF; Urobilinogen,Urine < 2.0 mg/dL (<2.0)
[2020-08-16 10:51] LABS: ABG Methemoglobin 0.3 % (0.0-1.5); ABG PCO2 39.3 mm Hg; ABG PO2 136.9 mm Hg (80.0-90.0)
[2020-08-16 10:53] LABS: ABG PH 7.137 pH Units (7.350-7.450)
[2020-08-16] MEDS ORDERED: NORepinephrine/NS 4 MG-250 ML 4 MG/250 ML BAG IV SCH (11:00)
[2020-08-16 11:07] VITALS: BP 83/23
[2020-08-16 11:26] LABS: Band Neutrophils # (Manual) 1.3 K/mm3; Total Cells Counted 100
[2020-08-16 11:27] LABS: Platelet Estimate Consistent w Auto; RBC Morphology Normal
--- NOTE | 2020-08-17 10:41 | Electrocardiograph Report ---
[facility] Test Date: 2020-08-16 Test Time: 08:45:50 Pat Name: VADIM YATES Department: Room: Gender: M Project Portfolio Analyst: TV : 1975 Requested By: PERICO RAMSAY Order Number: [id number] Reading MD: Ramsey Miller Measurements Intervals [place] Rate: 79 P: 67 IA: 170 QRS: -79 QRSD: 194 T: 105 QT: 470 QTc: 539 Interpretive Statements Sinus rhythm Probable left atrial enlargement Right bundle branch block No previous ECG available for comparison Electronically Signed On 08-17-2020 10:41:04 EDT by Ramsey Miller
== END 2020-08-16 12:00 ==
LOC: ED 08:26
DX: I46.9 Cardiac arrest, cause unspecified (principal); I10 Essential (primary) hypertension; I25.2 Old myocardial infarction; F17.200 Nicotine dependence, unspecified, uncomplicated; Z79.899 Other long term (current) drug therapy
CPT/HCPCS: 31500; 36415; 36556; 71045; 80048; 80061; 80076; 81001; 82550; 82553; 82803; 82962; 84484; 85007; 85025; 85610; 85730; 86850; 86900; 86901; 92950; 93005; 96365; 96368; 99291; J1265; J2543; J3370; J7030; 87086; 94002